=== PATIENT | female | born 1955 ===

== ENCOUNTER 2025-01-02 07:30 | Inpatient (IN) | payer OTHER ==
[~2025-01-02] VITALS: Ht 160 cm; Wt 74.8 kg
[2025-01-02] MEDS ORDERED: LIPITOR40 M1 PO (08:18)
[2025-01-02] MEDS ORDERED: VITAMIN D (08:19)
[2025-01-02] MEDS ORDERED: PROAIR RESPICL90 MCG (08:19)
[2025-01-02 08:39] VITALS: BP 147/74
[2025-01-02 08:53] LABS: HEMATOCRIT 36.4 % (36.0-45.00); HEMOGLOBIN 12.5 g/dL (12.0-15.00); MEAN CORPUSCULAR HEMOGLOBIN 29.6 pg (27.00-32.0); MEAN CORPUSCULAR HGB CONC 34.4 g/dl (32.0-36.0); PH,URINE 5.5 (5.0-8.0); PLATELET COUNT 248 K/uL (150-450); RED BLOOD COUNT 4.23 M/uL (4.00-6.00); RED CELL DISTRIBUTION WIDTH 13.5 % (11.5-14.5); URINE APPEARANCE Clear; URINE BILIRRUBIN Negative (NEGATIVE); URINE BLOOD NHT; URINE COLOR Yellow; URINE GLUCOSE Negative (NEGATIVE); URINE KETONE Negative (NEGATIVE); URINE LEUKOCYTE Negative; URINE NITRATE Negative; URINE PROTEIN Negative (NEGATIVE); URINE UROBILINOGEN 0.2 E.U./dl
[2025-01-02 08:57] LABS: URINE BACTERIA 384.3 uL (0.0-1933); URINE EPITHELIAL CELLS 17.2 uL (0.0-38.8); URINE RBC 6.9 uL (0.0-20.8)
[2025-01-02 09:15] LABS: INR 0.96; PARTIAL THROMBOPLASTIN TIME 24.7 SECONDS (22.0-34.0); PROTHROMBIN TIME 10.5 SECONDS (9.0-11.5)
[2025-01-02 09:26] LABS: ALBUMIN 3.7 gm/dL (3.4-5.0); BILIRUBIN TOTAL 0.43 mg/dL (0.3-1.2); CALCIUM 9.1 mg/dL (8.5-10.1); CREATININE SERUM 0.58 mg/dL (0.55-1.02); GFR 103.69; GLOBULINA 3.2 G/DL (2.4-3.5); POTASSIUM 4.32 mEq/L (3.5-5.1); TOTAL PROTEIN 6.9 gm/dL (6.4-8.2)
[2025-01-10] MEDS ORDERED: TRANEXAMIC ACID 100MG/1ML (1000MG) AMPUL IV ONE ×2 (06:45→07:00)
[2025-01-10] MEDS ORDERED: BUPIVACAINE HCL 30 ML VIAL IJ ONE (06:45)
[2025-01-10] MEDS ORDERED: LIDOCAINE HCL 1%/EPINEPHRINE 20ML VIAL IJ ONE (06:45)
[2025-01-10] MEDS ORDERED: ISOPROPYL ALCOHOL 30 ML OUNCE TOP ONE (07:00)
[2025-01-10] MEDS ORDERED: VANCOMYCIN HCL 1,000 MG VIAL IR ONE (07:00)
[2025-01-10] MEDS ORDERED: MORPHINE SULFATE 4 MG/ML VIAL IV ONE ×4 (07:00→13:20)
[2025-01-10] MEDS ORDERED: CEFAZOLIN SODIUM 1,000 MG VIAL IV SCH ×2 (07:30→14:00)
[2025-01-10] MEDS ORDERED: OxyCODONE HCL/APAP UD (PERCOCET) PO PRN (09:15)
[2025-01-10] MEDS ORDERED: ONDANSETRON HCL 2 MG/ML VIAL IV PRN (09:15)
[2025-01-10] MEDS ORDERED: MORPHINE SULFATE 4 MG/ML CARTRIDGE IV SCH (12:00)
[2025-01-10 16:21] VITALS: BP 159/80; O2SAT 100
[2025-01-10] MEDS ORDERED: ATORVASTATIN CALCIUM 40 MG TABLET PO SCH (17:00)
[2025-01-10] MEDS ORDERED: GABAPENTIN 100 MG CAPSULE PO SCH (21:00)
[2025-01-10] MEDS ORDERED: ORPHENADRINE CITRATE 100 MG TABLET PO SCH (21:00)
[2025-01-11 00:28] VITALS: BP 160/77; O2SAT 99
[2025-01-11 06:50] LABS: HEMATOCRIT 35.5 % (36.0-45.00); HEMOGLOBIN 11.9 g/dL (12.0-15.00); MEAN CELL VOLUME 86.6 fL (80.00-100.00); MEAN CORPUSCULAR HEMOGLOBIN 29.1 pg (27.00-32.0); MEAN CORPUSCULAR HGB CONC 33.6 g/dl (32.0-36.0); PLATELET COUNT 231 K/uL (150-450); RED CELL DISTRIBUTION WIDTH 12.9 % (11.5-14.5)
[2025-01-11 08:26] VITALS: BP 174/80; O2SAT 97
[2025-01-11] MEDS ORDERED: APIXABAN 2.5 MG TABLET PO SCH ×2 (09:00)
[2025-01-11 11:30] VITALS: BP 132/79; O2SAT 95
[2025-01-11] MEDS ORDERED: SOD FERRIC GLUC COMPLX/SUCROSE 62.5 MG/5 ML AMPUL IV SCH (12:40)
[2025-01-11] MEDS ORDERED: Cyanocobalamin/Mecobalamin 1 TAB.SL SL SCH (12:41)
[2025-01-11 16:00] VITALS: BP 175/79; O2SAT 98
[2025-01-11] MEDS ORDERED: VITAMIN B COMPLEX 1 EACH PO SCH (17:00)
[2025-01-12 00:50] VITALS: BP 128/69; O2SAT 97
[2025-01-12 07:04] LABS: HEMATOCRIT 34.5 % (36.0-45.00); HEMOGLOBIN 11.8 g/dL (12.0-15.00); MEAN CELL VOLUME 86.2 fL (80.00-100.00); MEAN CORPUSCULAR HEMOGLOBIN 29.4 pg (27.00-32.0); MEAN CORPUSCULAR HGB CONC 34.1 g/dl (32.0-36.0); RED CELL DISTRIBUTION WIDTH 13.1 % (11.5-14.5)
[2025-01-12 07:54] LABS: PLATELET COUNT 194 K/uL (150-450)
[2025-01-12] MEDS ORDERED: GABAPENTIN100 MG PO (10:54)
[2025-01-12] MEDS ORDERED: OXYC1TAB9 PO (10:55)
[2025-01-12] MEDS ORDERED: ELIQUIS2.5 MG PO (10:55)
[2025-01-12] MEDS ORDERED: NORFLEX100MG PO (10:55)
[2025-01-12 15:00] VITALS: BP 121/77; O2SAT 98
== END 2025-01-12 16:55 | DRG 470 ==
LOC: O/R 01-10 05:13 → SURG 01-10 05:13 → SURH 01-10 07:00 → SURG 01-10 10:26
PROVIDERS: ADMIT Orthopaedic Surgery; ATTEND Orthopaedic Surgery
PROC: 0QUD0JZ Supplement Right Patella with Synthetic Substitute, Open Approach (ICD-10-PCS; 2025-01-10)
PROC: 0SRC0JZ Replacement of Right Knee Joint with Synthetic Substitute, Open Approach (ICD-10-PCS; principal; 2025-01-10 07:00)
DX: M17.11 Unilateral primary osteoarthritis, right knee (principal); D62 Acute posthemorrhagic anemia; J45.909 Unspecified asthma, uncomplicated; Z96.651 Presence of right artificial knee joint